=== PATIENT | male | born 1960 | race American Indian/Alaskan Native ===

== ENCOUNTER 2016-05-14 10:19 | Day surgery (SDC) | payer OTHER ==
[~2016-05-14 10:19] MED LIST: XYLOCAINE MPF 2% ONE
[2016-05-14] MEDS ORDERED: NACL 0.9% 1000 ML 1,000 ML IV SCH (11:00)
[2016-05-14] MEDS ORDERED: XYLOCAINE MPF 2% ONE (12:20)
[2016-05-14] MEDS ORDERED: DIPRIVAN 10 MG/ML IV ONE ×2 (12:21)
--- NOTE | 2016-05-14 12:21 | Anesthesia Consultation ---
Anesthesia Consult and Med Hx Date of service: 05/14/16 - Airway Anesthetic Teeth Evaluation: Good ROM Head & Neck: Adequate Mental/Hyoid Distance: Adequate Mallampati Class: Class II Intubation Access Assessment: Probably Good - Pulmonary Exam CTA: Yes - Cardiac Exam Cardiac Exam: RRR - Pre-Operative Health Status ASA Pre-Surgery Classification: ASA2 Proposed Anesthetic Plan: MAC - Pulmonary Hx Smoking: No - Cardiovascular System Hx Hypertension: Yes (10 YEARS AGO)
--- NOTE | 2016-05-14 12:21 | Anesthesia Day of Surgery ---
Anesthesia Day of Surgery - Day of Surgery Patient Examined: Yes Patient H&P Reviewed: Yes Patient is NPO: Yes
--- NOTE | 2016-05-14 13:07 | Operative Report ---
Operative Report Operative Report: Date of procedure: 05/14/2016 Procedure: Colonoscopy with snare polypectomy, Hot biopsy polypectomy and submucosal injection. Attending physician: Jeramie Calix MD Ichthyologist: Jeramie Calix MD Indication: 56-year-old male who presents for screening colonoscopy. This colonoscopy is done to assess patient and direct treatment based on the findings. Consent: Informed consent was obtained after advising the patient and family regarding nature of this procedure, its indications, potential benefits as well as possible complications including but not limited to bleeding perforation and adverse reaction to medication, infection as well as other cardiopulmonary complications. An informed written and verbal consent was then obtained after due opportunity was provided for questions and answers. Monitoring: Patient was monitored continuously with pulse oximetry and electrocardiographic recordings as well as blood pressure recordings. Vital signs remained stable throughout this procedure with no untoward events. Preoperative assessment: Patient was assessed immediately prior to this procedure for capacity to tolerate monitored anesthesia care and moderate sedation as well as general anesthesia. Patient's ASA classification is 2, Mallampati class is 2, Hyomental distance is 3. Instrument: Glam .fr Francen videocolonoscope Medications: Propofol given intravenously in divided doses for details please refer to anesthesia records. Description of procedure: Patient was placed in the left lateral decubitus position after achieving sedation, a digital rectal examination was performed following which the colonoscope was introduced into the anal verge and advanced to the cecum which was identified by the cecal valve, the appendiceal orifice, as well as by the cecal strap and direct transillumination. The colonoscope was subsequently withdrawn with careful inspection of all mucosal surfaces. Patient tolerated this procedure well and was subsequently taken to the recovery room. The following findings were noted. Findings: Patient had a few diverticula in the sigmoid colon. There was thick liquid densely adherent stool seen in various segments of the colon. Patient had broad based flat polyp in the ascending colon. It was elevated with a submucosal injection of saline and removed by snare polypectomy. In the descending colon patient had a 5mm sessile polyp which was removed by hot biopsy polypectomy. The rest of the examination to the cecum was normal. On the retroflex view, at the anal verge, patient had internal hemorrhoids. Impression: Ascending polyp status post submucosal injection and snare polypectomy Descending colon polyp status post hot biopsy polypectomy Mild colonic diverticulosis Internal hemorrhoids. Plan: Follow pathology report. High-fiber diet. Repeat colonoscopy in 1 year given the patient had relatively poor preparation.
--- NOTE | 2016-05-14 13:08 | Discharge Summary ---
Short Stay Discharge Plan Activity: advance as tolerated Weight Bearing Status: Weight Bear as Tolerated Diet: regular Additional Instructions: Post Sedation D/C Instructions When you return home you may resume your regular diet unless otherwise directed. -Go directly home from the hospital and rest quietly. You may resume normal activities tomorrow. - Do NOT drive, return to work, operate any machinery or make any important personal or business decisions today. -Do NOT drink any alcohol or take nerve or sleeping drugs. They add to the effects of the medicine still present in your body. Follow up with: LENIN ORDOÑEZ MD [Primary Care Provider] - 7 Days
[2016-05-14 13:22] VITALS: BP 135/68
--- NOTE | 2016-05-14 14:03 | Post Anesthesia Evaluation ---
- Post Anesthesia Evaluation Patient Participated: Yes Airway Patent: Yes Stable Respiratory Function: Yes Temp > 96.8F: Yes Pain Manageable: Yes Adequeate Hydration: Yes Anesthesia Complications: No Block Receding Appropriately: Not Applicable
== END 2016-05-14 10:20 | disposition home or self-care (01) ==
LOC: GIO 10:19
PROVIDERS: ATTEND Internal Medicine Gastroenterology
DX: Z12.11 Encounter for screening for malignant neoplasm of colon (principal); K63.5 Polyp of colon; K57.30 Diverticulosis of large intestine without perforation or abscess without bleeding; K64.8 Other hemorrhoids; I10 Essential (primary) hypertension; M19.90 Unspecified osteoarthritis, unspecified site; Z79.82 Long term (current) use of aspirin; Z79.899 Other long term (current) drug therapy; Z72.89 Other problems related to lifestyle; Z80.0 Family history of malignant neoplasm of digestive organs
CPT/HCPCS: 45381; 45384; 45385; 88305; J2704; J7030